=== PATIENT | female | born 1970 | race African-American/Black ===

== ENCOUNTER → 2025-03-29 | Day surgery (SDC) | payer OTHER ==
[~2025-03-29] MED LIST: ARAVA20 MG PO; ASPIRIN81 MG PO; ATORVASTATIN CA20 MG PO; BISACODYL5 MG PO; CETIRIZINE HCL10 M1; CITALOPRAM10 MG/5 ML PO; CLOPIDOGREL75 MG PO; FOLIC ACID0.4 MG PO; HYDROCHLOROTHIA25 MG; HYDROCODONE-AC473 M1; LATANOPROST2.5 ML OP; LIDOCAINE HCL 2% LOCAL INJ 5 ML SDV VIAL INJ ONE; LINZESS290 MCG; LOSARTAN POTASS25 MG PO; LYRICA100 MG PO; METFORMIN HCL500 MG PO; METOPROLOL TART25 MG PO; MIDAZOLAM HCL 2 MG/2 ML VIAL ONE; PREDNISONE20 MG PO; PROPOFOL IV EMULSION 10 MG/ML 20 ML VIAL ONE; PROTONIX20 MG PO; TIZANIDINE HCL4 M1 PO; TOLTERODINE TART2 MG; TRAZODONE HCL100 MG PO; VENLAFAXINE HCL75 MG PO; VITAMIN D250 MCG
[2025-03-29] MEDS: LACTATED RINGER'S 1,000 ML ONE (17:17)
[2025-03-29 19:00] VITALS: BP 164/89; PULSE 71; RESP 16; TEMP 97.4; O2SAT 98
== END | disposition home or self-care (01) ==
LOC: EDSEX 14:30 → OR 17:39
PROVIDERS: ATTEND Internal Medicine Gastroenterology
DX: Z12.11 Encounter for screening for malignant neoplasm of colon (principal); D12.2 Benign neoplasm of ascending colon; D12.3 Benign neoplasm of transverse colon; K57.30 Diverticulosis of large intestine without perforation or abscess without bleeding; K64.8 Other hemorrhoids; K62.5 Hemorrhage of anus and rectum; K58.9 Irritable bowel syndrome, unspecified; R19.5 Other fecal abnormalities; K59.09 Other constipation; K44.9 Diaphragmatic hernia without obstruction or gangrene; K21.9 Gastro-esophageal reflux disease without esophagitis; R09.A2 Foreign body sensation, throat; D64.9 Anemia, unspecified; D68.9 Coagulation defect, unspecified; I10 Essential (primary) hypertension; J44.9 Chronic obstructive pulmonary disease, unspecified; M06.9 Rheumatoid arthritis, unspecified; M19.90 Unspecified osteoarthritis, unspecified site; E66.9 Obesity, unspecified; F31.9 Bipolar disorder, unspecified; Z79.02 Long term (current) use of antithrombotics/antiplatelets; Z79.82 Long term (current) use of aspirin; Z79.84 Long term (current) use of oral hypoglycemic drugs; Z79.1 Long term (current) use of non-steroidal anti-inflammatories (NSAID); Z79.899 Other long term (current) drug therapy; Z87.898 Personal history of other specified conditions; Z86.73 Personal history of transient ischemic attack (TIA), and cerebral infarction without residual deficits; Z80.0 Family history of malignant neoplasm of digestive organs
CPT/HCPCS: 36415; 45384; 45385; 82948; 93005; J2003; J2250; J2704; J7121